=== PATIENT | female | born 1955 | race Caucasian/White ===

== ENCOUNTER 2022-08-12 10:30 | Outpatient (CLI) | payer MEDICARE, SELFPAY ==
[2022-08-12 11:18] LABS: Hematocrit 45.4 % (37.0-47.0); Hemoglobin 14.8 g/dL (12.0-15.0); Mean Corpuscular HGB Conc 32.6 g/dl (32-36); Mean Corpuscular Hemoglobin 32.3 pg (26-34); Mean Corpuscular Volume 99.1 fl (80-100); Mean Platelet Volume 9.7 fl (7.4-10.4); Platelet Count Result 257 k/mm3 (150-375); Red Blood Count 4.58 M/mm3 (4.2-5.4); Red Cell Distribution Width 13.4 % (11.5-14.5); White Blood Count 6.7 K/mm3 (4.5-10.0)
[2022-08-12 11:29] LABS: Anion Gap 5 mmol/L (8-16); Blood Urea Nitrogen 17 mg/dL (7-17); Calcium 9.8 mg/dL (8.4-10.2); Carbon Dioxide 30 mmol/L (22-30); Chloride 105 mmol/L (98-107); Estimated Glomerular Filt Rate > 60; Glucose 104 mg/dL (65-110); Potassium 3.9 mmol/L (3.4-5.0); Sodium 140 mmol/L (137-145)
== END 2022-08-12 10:31 | disposition home or self-care (01) ==
LOC: ANHSURGERY 10:34
PROVIDERS: Anesthesiology; PCP Internal Medicine; Visit Provider Obstetrics & Gynecology
DX: N95.0 Postmenopausal bleeding (principal); Z01.818 Encounter for other preprocedural examination; Z51.81 Encounter for therapeutic drug level monitoring
CPT/HCPCS: 36415; 80048; 85027

== ENCOUNTER 2022-08-14 01:03 | Day surgery (SDC) | payer MEDICARE, SELFPAY ==
[2022-08-07 13:07] VITALS: BMI 41.4
--- NOTE | 2022-08-07 13:27 | PC.NURSE ---
Report to the Outpatient Waiting Room, entrance under the green pavilion located off [facility], at time __9:00AM on date __08/14/22 . Planned Procedure Time: __11:00AM . Time changes happen often and if your time is changed the preop area will call you the afternoon before. - You and your visitor will be asked to self-screen and do not enter if you have any COVID symptoms. - Only one visitor is requested with a max of two and NO children visitors are allowed at this time. - The patient visitor may be requested to leave or wait in car when not with patient due to distancing restrictions. - A mask is optional within the hospital at this time. Patients may have clear liquids (water, carbonated beverages, clear teas, apple juice) until 3 hours prior to surgery with a maximum of 20 ounces. - No food from midnight until time of surgery Take the following medications with a SIP of water the morning of surgery: __DOFETILIDE, METOPROLOL, FLONASE NEEDED DO NOT STOP ANY OF YOUR OTHER PRESCRIPTION MEDICATIONS PRIOR TO SURGERY ?EXCEPT THE FOLLOWING Medications to discontinue per physician ___HOLD ELIQUIS(PER DR SANZ/DR GUERRERO) AND ALL VITAMINS/SUPPLEMENTS 3 DAYS PRE-OP Date to take last dose____08/10/22 Please no make-up, nail romanian, hairspray, perfume, deodorant, or body powder the day of surgery. No jewelry (including any body piercings) or valuables the day of surgery, leave them at home. Please take a shower or bath the night before, or the morning of, surgery with an antibacterial soap. Wear comfortable, loose fitting clothing. Children are encouraged to wear pajamas. - Jewelry must be removed prior to entering the operating room. Rings and piercings that are not removed may be cut off. - The hospital will not accept responsibility for valuables. - Please leave all valuables, including medications, at home the day of surgery. If you are going home after surgery, a licensed backhaul driver must drive you home. - NO public transportation without another adult if you receive anesthesia. - We recommend that an adult stay with you for 24 hours following discharge. - We also recommend that you do not drive, make important decision, drink alcoholic beverages, or take any drugs that were not prescribed by your health care provider for at least 24 hours after your discharge time. Follow any additional instructions given to you from your surgeon. If you or anyone in your household have experienced Covid symptoms in the past week, please notify your surgeon or the nurse liaison at the phone number below for possible testing. Telephone instructions given to _PATIENT___and asked if any additional questions and then verbalized understanding. Patient advised to call surgeon office or pre surgery nurse liaison [phone] if any additional questions.
--- NOTE | 2022-08-14 07:48 | WPDHPUPDATE1 ---
History and Physical Update Update Date/Time: 08/14/22 07:48 After patient was seen in the office ultrasound was performed which did reveal fibroid and 18mm endometrial thickness. Assessment: 1. Postmenopausal bleeding 2. Endometrial hypertrophy 3. Uterine fibroid Plan: 1. Hysteroscopy with uterine curettings History and Physical has been reviewed, including an updated exam of the patient. There are NO changes in the patient's condition. Risks, benefits, and alternatives have been discussed and questions answered. Patient agrees to proceed with procedure.
[2022-08-14 08:24] VITALS: BP 151/84; PULSE 54; RESP 20; TEMP 36.7; O2SAT 98
[2022-08-14] MEDS: ACETAMINOPHEN 500 MG TABLET 1000 MG PO (08:38)
[2022-08-14] MEDS: LACTATED RINGERS 1,000 ML 30 ML IV CONT (08:40)
--- NOTE | 2022-08-14 09:00 | WPDANESEPPF ---
Anes - Initial Pre Proc Eval Procedure: Operation Date: 08/14/22 10:00 Proposed Procedures p Hysteroscopy Dilation and Curettage - Edgar Diaz MD Date/Time: 08/14/22 09:00 Surgeon: Edgar Diaz MD Pre Op Diagnosis: Post Menopausal Bleeding Patient Data Age: 67 Gender: F Height: 1.65 m Weight: 113.2 kg Last Vital Signs Temp 98.1 F 08/14/22 08:24 Pulse 54 L 08/14/22 08:24 Resp 20 08/14/22 08:24 BP 151/84 H 08/14/22 08:24 Pulse Ox 98 08/14/22 08:24 O2 Del Method Room Air 08/14/22 08:24 Allergies Allergy/AdvReac Type Severity Reaction Status Date / Time No Known Allergies Allergy Verified 08/14/22 08:26 Home Medications Medication Instructions Recorded Confirmed Type cetirizine 10 mg capsule (All Day 10 mg PO DAILY 12/29/19 08/14/22 History Allergy (cetirizine)) clonazepam 1 mg tablet 1 mg PO HS 12/29/19 08/14/22 History fluticasone propionate 50 2 spray intranasal BID 12/29/19 08/14/22 History mcg/actuation nasal spray,suspension (Flonase Allergy Relief) irbesartan 300 mg tablet 300 mg PO QAM 12/29/19 08/14/22 History acetaminophen 500 mg tablet 1,000 mg PO Q6H PRN Pain 07/23/22 08/14/22 History (Tylenol Extra Strength) apixaban 5 mg tablet (Eliquis) 5 mg PO BID 07/23/22 08/14/22 History cholecalciferol (vitamin D3) 25 25 mcg PO DAILY 07/23/22 08/14/22 History mcg (1,000 unit) capsule cyclobenzaprine 10 mg tablet 10 mg PO TID PRN Muscle Spasm 07/23/22 08/14/22 History dofetilide 500 mcg capsule 500 mcg PO Q12H 07/23/22 08/14/22 History metoprolol tartrate 25 mg tablet 25 mg PO BID 07/23/22 08/14/22 History azelastine 0.05 % eye drops 1 drp EACH EYE BID PRN Dry Eye(S) 08/07/22 08/14/22 History gemfibrozil 600 mg tablet 600 mg PO BID 08/07/22 08/14/22 History tkfbjkcuvkdg-Cj-yrbz-minerals 1 tablet PO DAILY 08/07/22 08/14/22 History Patient hx anesthesia problems: none Family hx anesthesia problems: none Results Review: All pre-operative results and documents have been reviewed as part of the pre-operative evaluation. PMFSH Past Medical History Medical History Afib Allergies Anxiety High cholesterol Hypertension Obstructive sleep apnea (adult) (pediatric) Family History Family History Mother Diabetes mellitus Hypertension Family history of Alzheimer's disease Sibling Diabetes mellitus Family history of coronary artery disease Father Family history of coronary artery disease Social History Social History Smoking status: Never smoker Second hand tobacco smoke exposure: Yes Alcohol intake: current Drinks per week: 3 Alcohol use details: Socially Substance use: never Substance use type: does not use Living arrangements: with family Additional living arrangements comments: [facility] Occupation/Education: retired Gender identity (if verbalized by the patient): Female Sexual Orientation (if Verbalized by the Patient): Straight or Heterosexual Spiritual care concerns: No Anes - Eval Final PreProcedure Day of Procedure 08/14/22 09:00 Patient weight: morbidly obese Heart: regular rate and rhythm Lungs: clear to auscultation Airway: Mallampati scale class II Neurological: alert and oriented Last oral intake: >/= 8 hours ASA classification: III Emergent: no Anesthetic plan: proceed Anesthesia type and monitoring: general GIVS and standard monitoring Results Review: All pre-operative results and documents have been reviewed as part of the pre-operative evaluation. Informed Consent: The patient's anesthetic plan and its attendant risks and benefits were discussed with the patient/family/POA. Questions were solicited and answers provided to the satisfaction of the patient/family/POA.
[2022-08-14 09:55] VITALS: BP 114/61; PULSE 45; RESP 14; O2SAT 98
--- NOTE | 2022-08-14 10:14 | W.PM.PROC2 ---
Procedure Note - Detailed Date of Procedure 08/14/22 Pre-op Diagnosis 1. Postmenopausal bleeding 2. Endometrial hypertrophy Post-op Diagnosis Same Procedure Performed 1. Hysteroscopy with uterine curettings 2. Endometrial polypectomy Surgeon Edgar Diaz MD Anesthesia MAC Findings 1. Hypervascular endometrial cavity noted 2. Endometrial polyp noted Description of Procedure patient was prepped and draped in usual manner for this procedure. Cervix was dilated to allow the hysteroscope to placed which revealed findings as noted above hypervascular cavity with mildly thickened tissue as well as to hypervascular polyps. Using the resectoscope polyp in tissue sampling was obtained followed by generalized curetting. There was minimal bleeding and the patient was then sent to the cover room in stable condition. Estimated Blood Loss 10 Drains No Packing No Pathology Yes Complications No immediate complications Condition Stable Disposition PACU [facility] Billing Surgery - Charge Forward: Surgery Billing
[2022-08-14 10:15] VITALS: BP 116/63; PULSE 45; RESP 16; O2SAT 94
[2022-08-14 10:45] VITALS: BP 132/78; PULSE 48; RESP 16
[2022-08-14 11:00] VITALS: BP 134/63; PULSE 44; RESP 16
--- NOTE | 2022-08-14 11:14 | SUR.PHASEII ---
1110 PT MEETS ANESTHESIA DISCHARGE CRITERIA. PT DRESSED & SPOUSE IN ROOM. WAITING FOR A RIDE HOME.
== END 2022-08-14 11:45 | disposition home or self-care (01) ==
PROVIDERS: PCP Internal Medicine; Visit Provider Obstetrics & Gynecology
PROC: 0U5B8ZZ Destruction of Endometrium, Via Natural or Artificial Opening Endoscopic (ICD-10-PCS; CPT 58563; principal; 2022-08-14 10:00)
DX: C54.1 Malignant neoplasm of endometrium (principal); N95.0 Postmenopausal bleeding; I48.91 Unspecified atrial fibrillation; I10 Essential (primary) hypertension; E78.00 Pure hypercholesterolemia, unspecified; G47.33 Obstructive sleep apnea (adult) (pediatric); Z79.01 Long term (current) use of anticoagulants; E66.01 Morbid (severe) obesity due to excess calories; Z68.41 Body mass index [BMI] 40.0-44.9, adult
CPT/HCPCS: 58558; 36415; 80048; 85027; 88305; A9270; J1885; J2704; J3010; J7120

== ENCOUNTER 2023-01-03 17:09 | Emergency (ER) | payer MEDICARE, SELFPAY ==
--- NOTE | ~2023-01-03 | XR_ITS ---
EXAMINATION: XR ankle LT min 3V DATE: 01/03/2023 17:40 INDICATION: Left ankle pain TECHNIQUE: Anteroposterior, lateral, mortise, and additional oblique view of the ankle were obtained. COMPARISON: None. FINDINGS: Bone alignment is normal. There is no fracture. There is soft tissue swelling of ankle. Pos terior and plantar calcaneal enthesophytes are noted. IMPRESSION: 1. Soft tissue swelling without acute osseous abnormality. Reviewed, dictated and finalized at location F.
[2023-01-03 17:21] VITALS: BP 140/61; PULSE 71; RESP 16; TEMP 36.6; O2SAT 97
--- NOTE | 2023-01-03 17:24 | ED.LOWEXIN ---
HPI - Extremity Injury (Lower) General Chief Complaint: Extremity Injury, Lower Stated Complaint: Left Ankle Injury Source: patient, family and RN notes reviewed History of Present Illness HPI Narrative: 67 yo F presents to urgent care with at side. Pt states last night they were leaving a restaurant and she was holding her 's hand when he missed a step and fell. Pt didn't fall the ground but did fall into a black iron chair. Pt states she has a small bruise to her left breast but her biggest concern is her left ankle. Pt states she didn't have much pain last night but she woke up and she couldn't walk on her left foot b/c of the pain. Pt denies hitting her head or any LOC. denies any chest pain or SOB. Pt took an oxycodone earlier this afternoon and Tylenol this morning with minimal relief. Related Data Home Medications Medication Instructions Recorded Confirmed cetirizine 10 mg capsule (All Day 10 mg PO DAILY 12/29/19 01/03/23 Allergy (cetirizine)) clonazepam 1 mg tablet 1 mg PO HS 12/29/19 01/03/23 fluticasone propionate 50 2 spray intranasal BID 12/29/19 01/03/23 mcg/actuation nasal spray,suspension (Flonase Allergy Relief) irbesartan 300 mg tablet 300 mg PO QAM 12/29/19 01/03/23 acetaminophen 500 mg tablet 1,000 mg PO Q6H PRN Pain 07/23/22 01/03/23 (Tylenol Extra Strength) apixaban 5 mg tablet (Eliquis) 5 mg PO BID 07/23/22 01/03/23 cholecalciferol (vitamin D3) 25 25 mcg PO DAILY 07/23/22 01/03/23 mcg (1,000 unit) capsule cyclobenzaprine 10 mg tablet 10 mg PO TID PRN Muscle Spasm 07/23/22 01/03/23 dofetilide 500 mcg capsule 500 mcg PO Q12H 07/23/22 01/03/23 metoprolol tartrate 25 mg tablet 25 mg PO BID 07/23/22 01/03/23 azelastine 0.05 % eye drops 1 drp EACH EYE BID PRN Dry Eye(S) 08/07/22 01/03/23 gemfibrozil 600 mg tablet 600 mg PO BID 08/07/22 01/03/23 xlojrocuxmhc-Rw-sgcm-minerals 1 tablet PO DAILY 08/07/22 01/03/23 amlodipine 5 mg tablet 5 mg PO DAILY 01/03/23 01/03/23 letrozole 2.5 mg tablet 2.5 mg PO DAILY 01/03/23 01/03/23 venlafaxine 75 mg capsule,extended 75 mg PO DAILY 01/03/23 01/03/23 release 24 hr Allergies Allergy/AdvReac Type Severity Reaction Status Date / Time No Known Allergies Allergy Verified 01/03/23 17:35 Review of Systems Review of Systems: CONSTITUTIONAL: Denies fever, chills, or sweats. EYES: Denies visual changes, redness, or discharge. ENT: Denies otalgia and sore throat CARDIOVASCULAR: Denies chest pain, palpitations, or edema. RESPIRATORY: Denies cough or dyspnea. GASTROINTESTINAL: Denies abdominal pain, nausea, vomiting, or diarrhea. GENITOURINARY: Denies dysuria or hematuria. SKIN: Denies rash or itching. MUSCULOSKELETAL:Left ankle pain NEUROLOGIC: Denies headache, numbness, or weakness. Pertinent positives per HPI. [facility] Past Medical History Medical History Afib Allergies Anxiety High cholesterol Hypertension Obstructive sleep apnea (adult) (pediatric) Surgical History Surgical History History of hysteroscopy (08/14/22) Hysteroscopy with uterine curettings Endometrial polypectomy / Endometrioid adenocarcinoma, FIGO grade 1 Family History Family History Mother Diabetes mellitus Hypertension Family history of Alzheimer's disease Sibling Diabetes mellitus Family history of coronary artery disease Father Family history of coronary artery disease Social History Social History Smoking status: Never smoker Second hand tobacco smoke exposure: Yes Alcohol intake: current Drinks per week: 3 Alcohol use details: Socially Substance use: never Substance use type: does not use Living arrangements: with family Additional living arrangements comments: [facility] Occupation/Education: retired
== END 2023-01-03 18:25 | disposition home or self-care (01) ==
PROVIDERS: Emergency Provider Nurse Practitioner Family; PCP Internal Medicine
DX: S93.402A Sprain of unspecified ligament of left ankle, initial encounter (principal); S96.912A Strain of unspecified muscle and tendon at ankle and foot level, left foot, initial encounter; W19.XXXA Unspecified fall, initial encounter; I48.91 Unspecified atrial fibrillation; E78.00 Pure hypercholesterolemia, unspecified; I10 Essential (primary) hypertension; F41.9 Anxiety disorder, unspecified
CPT/HCPCS: 73610; 99213; G0463

== ENCOUNTER 2025-03-15 08:15 | Outpatient (CLI) | payer MEDICARE, SELFPAY ==
--- NOTE | 2025-04-05 11:00 | WPDSLEEPSTUD ---
Sleep Study Date of Study: 03/15/25 Ordering Provider: LETTY Almazan Interpreting Physician: Rupa Ventura DO Sleep Study Type: Polysomnogram Height: 1.63 m Weight: 92.986 kg Body Mass Index: 35.2 Neck Circumference (inches): 15 [place]: 3 Reason for Sleep Study Needs an updated study for new CPAP equipment Sleep History The patient is a 69-year-old female that had a sleep study ordered by the pulmonary group for evaluation of sleep apnea. The patient has a known history of sleep apnea and is currently on CPAP. She denies awakening from sleep short of breath. She denies awakening at night with heartburn, belching or cough. She rarely snores but is never loud enough that others complain. She occasionally has trouble sleeping when she has a cold. She denies waking up gasping for air throughout the night. She denies having breathing problems at night observed by herself or others. She denies having heart palpitations or irregular heartbeats during the night. She occasionally falls asleep during the day but never while driving. She denies sleep paralysis, cataplexy and hypnagogic/ hypnopompic hallucinations. She denies having trouble at school or work due to sleepiness. She denies feeling afraid of going to sleep. She denies having nightmares. She rarely remembers her dreams. She occasionally has thoughts racing through her mind. She rarely feels sad, depressed or anxious. She denies having muscular tension. She rarely notices parts of her body jerk. She denies kicking during the night. She denies having crawling and aching feelings in her legs and denies having leg pain during the night. She denies grinding her teeth during sleep and denies awakening with morning jaw pain. She is occasionally bothered by pain during the day but rarely awakened by pain during the night. She rarely wakes up feeling stiff in the morning. She rarely wakes up with sore or achy muscles. She rarely wakes up with pain in the neck, spine or other joints. She goes to bed at midnight every night. It takes her 1-2 hours to fall asleep if she does not take zolpidem. She wakes up 4-5 times throughout the night for unknown reasons and is able to fall back asleep relatively quickly if she takes her hypnotic. He wakes up at 9:00 a.m. every morning. She gets 6-7 hours of sleep per night. She will stay in bed for 5-10 minutes after waking up in the morning. She currently lives with her . She denies consuming any caffeinated beverages within 2 hours of bedtime. She denies engaging in physical exercise before bedtime. She denies reading before falling asleep. She will watch television before falling asleep. She will rarely take a nap in the afternoon or the evening but they are not refreshing. She consumes 2 cups of caffeinated beverage per day. She consumes 2 alcoholic beverages on the weekend. She denies tobacco and recreational drug use. [facility] Past Medical History Medical History Afib Obstructive sleep apnea (adult) (pediatric) Allergies High cholesterol Anxiety Hypertension Surgical History Surgical History History of hysteroscopy (08/14/22) Hysteroscopy with uterine curettings Endometrial polypectomy / Endometrioid adenocarcinoma, FIGO grade 1 Family History Family History Mother Diabetes mellitus Hypertension Family history of Alzheimer's disease Sibling Diabetes mellitus Family history of coronary artery disease Father Family history of coronary artery disease Social History Social History Smoking status: Never smoker Second hand tobacco smoke exposure: Yes Alcohol intake: current Drinks per week: 3 Alcohol use details: Socially Substance use: never Substance use type: does not use Living arrangements: with family [facility] Occupation/Education: retired Gender identity (if verbalized by the patient): Female Sexual Orientation (if Verbalized by the Patient): Straight or Heterosexual Spiritual care concerns: No Medications Home Medications ?Medication ?Instructions ?Recorded ?Confirmed ?Type cetirizine 10 mg capsule (All Day 10 mg PO DAILY 12/29/19 01/11/25 History Allergy (cetirizine)) fluticasone propionate 50 2 spray intranasal BID 12/29/19 01/11/25 History mcg/actuation nasal spray,suspension (Flonase Allergy Relief) irbesartan 300 mg tablet 300 mg PO QAM 12/29/19 01/11/25 History apixaban 5 mg tablet (Eliquis) 5 mg PO BID 07/23/22 01/11/25 History dofetilide 500 mcg capsule 500 mcg PO Q12H 07/23/22 01/11/25 History dymqhgzoeimo-Ei-dmzd-minerals 1 tablet PO DAILY 08/07/22 01/11/25 History amlodipine 5 mg tablet 5 mg PO DAILY 01/03/23 01/11/25 History letrozole 2.5 mg tablet 2.5 mg PO DAILY 01/03/23 01/11/25 History atorvastatin 20 mg tablet (Lipitor) 20 mg PO DAILY 07/13/24 01/11/25 History zolpidem 10 mg tablet 10 mg PO QHS 07/13/24 01/11/25 History acetaminophen 500 mg tablet 625 mg PO Q6H PRN Pain 01/11/25 01/11/25 History (Tylenol Extra Strength) cholecalciferol (vitamin D3) 25 5,000 unit PO DAILY 01/11/25 01/11/25 History mcg (1,000 unit) capsule metoprolol tartrate 25 mg tablet 75 mg PO BID 01/11/25 01/11/25 History Sleep Procedure A full night polysomnogram using the [employer]Edge multi-channel system recorded the standard physiologic parameters including EEG, EOG, submentalis EMG, anterior tibialis EMG, EKG, body position, nasal and oral airflow using nasal pressure sensor and thermistor.? Respiratory parameters of chest and abdominal movements were recorded with Respiratory Inductance Plethysmography belts. Oxygen saturation was recorded by pulse oximetry. Video monitoring was also performed. Sleep stages, periodic limb movements, and EEG arousals were scored in 30 second epochs according to the criteria of the AASM Scoring Manual. The Apnea-Hypopnea Index was calculated using CMS guidelines for definition of hypopnea with 4% O2 desaturations while scoring respiratory events. Sleep Architecture The total recording time was 549.9 minutes.? The total sleep time was 453.5 minutes. Sleep latency was 5.9 minutes. REM latency was 19.0 minutes. Sleep efficiency was 82.5%. The patient had 31 awakenings for an awakening index of 4.1. Wake after sleep onset time was 90.5 minutes. The patient spent 31.5 minutes, 6.9% of total sleep time in Stage N1. The patient spent 347.5 minutes, 76.6% in Stage N2. The patient spent 2.0 minutes, 0.4% in Stage N3. The patient spent 72.5 minutes, 16.0% in Stage REM sleep. Respiratory Analysis The patient had 47 hypopneas for an overall Apnea Hypopnea Index of 6.1. The REM Apnea Hypopnea Index was 25.7. The NREM Apnea Hypopnea Index was 3.0. The patient had a Central Apnea Hypopnea Index of 0. There was no evidence of Av-Craven Respirations. Arousals There were 316 total arousals for an arousal index of 41.8. There were 82 spontaneous arousals for an index of 10.8. There were 19 arousals due to respiratory events for an index of 2.5. There were 192 arousals due to periodic limb movements for an index of 25.4.? There were 23 arousals due to isolated limb movements for an index of 3.0. Periodic Limb Movements The patient had 29 isolated limb movements with an index of 3.8. The patient had 512 periodic limb movements with an index of 67.7, which is elevated (normal < 15). Patient had a total of 541 limb movements with a total limb movement index of 71.6. Oximetry Data The patient had an average oxygen saturation of 94.1% in sleep with a minimum oxygen saturation of 85.0% and a maximum oxygen saturation of 99.0%. The patient had 48 oxygen desaturations that were 4% or greater resulting in an Oxygen Desaturation Index of 6.4.? The patient spent 4.7 minutes, 0.9% of total sleep time with an oxygen saturation below 88%. Snoring Profile Mild to moderate snoring was present throughout the study. Cardiac Profile The EKG showed a paced rhythm with rare PVCs.?The patient had an average pulse rate of 71.9 bpm with a minimum pulse of rate of 66.0 bpm and a maximum pulse rate of 196.0 bpm.? EEG Profile No signs of seizure activity seen. Assessment and Plan Assessment and Plan (1) Obstructive sleep apnea (adult) (pediatric): Code(s): G47.33 - Obstructive sleep apnea (adult) (pediatric) Status: Acute Assessment and Plan: The patient had an overall AHI of 6.1 with desaturation down to 85%. This is consistent with mild sleep apnea. Due to the patient's hypertension, she qualifies for treatment. I recommend that the patient have a CPAP Titration with the use of a sleep aid to ensure we obtain enough sleep data and find an optimal pressure setting. Due to her consistent use of CPAP, you could also do a trial of AutoPAP 5-15 cm H2O. The patient had a significant number of limb movements during the study with the majority being periodic in nature. Approximately 40% of the periodic limb movements caused arousals in the patient's sleep. The patient's sleep history does not suggest Restless Leg Syndrome. I recommend that the patient have a serum ferritin drawn for evaluation of iron deficiency anemia. If the patient has a serum ferritin less than 75 ng/mL, I recommend starting a daily iron supplement and a Vitamin C supplement for better absorption. If the serum ferritin is greater than 75 ng/mL, I recommend starting a dopamine agonist and titrating the dose until symptoms resolve. There are nonpharmacological methods to treat limb movements including daily exercise, stretching calf muscles before bed, avoiding excessive amounts of caffeine and alcohol, vitamin B supplementation, magnesium lotion massaged into legs before bed, and use of a weighted blanket. Data The data obtained during this sleep study is adequate for interpretation. Certification This sleep study has been reviewed by a board certified sleep medicine physician.
[2025-04-05 11:01] VITALS: BMI 35.2
== END 2025-03-16 07:20 | disposition home or self-care (01) ==
PROVIDERS: PCP Internal Medicine; Visit Provider Physician Assistant
DX: G47.33 Obstructive sleep apnea (adult) (pediatric) (principal)
CPT/HCPCS: 95810